=== PATIENT | female | born 1955 | race Caucasian/White ===

== ENCOUNTER → 2018-01-13 | Outpatient (CLI) | payer BC ==
--- NOTE | 2018-01-13 10:09 | WWHP ---
[facility] - HISTORY AND PHYSICAL DATE OF DICTATION: 01/13/2018 CHIEF COMPLAINT: The patient is here for her routine gynecologic exam and mammogram. HPI: This is a 62-year-old G4, P3 with an LMP of 2001. The patient is without gynecologic complaints. PAST MEDICAL HISTORY: Unremarkable. MEDICATIONS: None. ALLERGIES: No known drug allergies. PAST SURGICAL HISTORY: Jaw surgery in 1984, colonoscopy 1999. 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 SOCIAL HISTORY: She denies tobacco and drug use and has decreased alcohol intake and now only drinks around the holidays. 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 She does watch some of her grandchildren. She is expecting her 7th grandchild. FAMILY HISTORY: Mother had type 2 diabetes. Maternal aunt had breast cancer. REVIEW OF SYSTEMS: She has gained about 10 pounds over the last 1-1/2 years. She denies respiratory, cardiac or GI problems. PHYSICAL EXAM: Blood pressure 138/81, height 5 feet 8 inches, weight 175 pounds. Temperature 98.3, pulse 69. This is a well-developed, well-nourished, white female, who is alert and oriented x3, in no acute distress. HEENT is within normal limits. NECK: Supple without mass or thyromegaly. CHEST AND LUNGS: Clear to auscultation. HEART: There are intermittent irregular beats that seem to be premature contractions with slight compensatory pause. Three such beats were noted in approximately a 15 second period and then none were noted for approximately 20 seconds. Breasts are without mass or discharge. Axillary exam is negative for adenopathy. Back negative for CVA tenderness. ABDOMEN: Soft, nontender, without palpable masses. PELVIC EXAM: External genitalia, there is a right vulvar varicosity which she states she has had for many years. This is nontender and noninflamed. There are no other lesions noted. Cervix and vagina reveal a grade 2 cystocele. There is no evidence of prolapse. The cervix appears normal. The uterus is mid-position, nongravid size and nontender. There are no palpable adnexal masses or tenderness. Rectovaginal exam is negative for mass or tenderness, but does confirm a grade 2 rectocele. This is negative for occult blood extremities nontender. IMPRESSION: 1. A 62-year-old female with an asymptomatic grade 2 rectocele, and otherwise unremarkable gynecologic exam. 2. Intermittent cardiac arrhythmia, probable PVCs which is asymptomatic. PLAN: 1. Pap smear was deferred since she had normal 1 less than 2 years ago. 2. Self-breast examination was discussed. 3. Screening mammogram will be done today. 4. Osteoporosis prevention was discussed. Bone density screening will be done tomorrow and a slip was given to the patient for this. 5. We have discussed the intermittent cardiac arrhythmia. She will do a 12-lead EKG today because of this. I have also recommended that she establish with a primary care physician since she currently does not have 1. I will consider a Cardiology referral depending on the findings on the EKG. 6. She was also instructed to call if she is having any cardiac symptoms such as palpitations or lightheadedness. 7. She will return in 1 year and p.r.n. REJI / LYNN: [id number] /
--- NOTE | 2018-01-15 08:05 | MM ---
Reason for exam: screening (asymptomatic). Last mammogram was performed 1 year and 8 months ago. History: Patient is postmenopausal. Family history of breast cancer in maternal aunt. Physical Findings: A clinical breast exam by your physician is recommended on an annual basis and results should be correlated with mammographic findings. MG 3D Screening Mammo W/Cad Bilateral CC, MLO, and XCCL view(s) were taken. Prior study comparison: April 30, 2016, bilateral MG 3d screening mammo w/cad. April 05, 2014, bilateral MG screening mammo w CAD. The breast tissue is heterogeneously dense. This may lower the sensitivity of mammography. No significant changes when compared with prior studies. ASSESSMENT: Negative, BI-RAD 1 RECOMMENDATION: Routine screening mammogram of both breasts in 1 year.
== END | disposition home or self-care (01) ==
LOC: WWCWWP 07:36
PROVIDERS: ATTEND Obstetrics & Gynecology
DX: Z12.31 Encounter for screening mammogram for malignant neoplasm of breast (principal); I49.9 Cardiac arrhythmia, unspecified
CPT/HCPCS: 77063; 77067; 93005

== ENCOUNTER → 2018-01-14 | Outpatient (CLI) | payer BC ==
--- NOTE | 2018-01-14 14:36 | BD ---
EXAMINATION TYPE: MG DEXA axial skeleton. DATE OF EXAM: 01/14/2018 COMPARISON: NONE CLINICAL HISTORY: Height: 5 FT 5 1/2 IN Weight: 172 FRAX RISK QUESTIONS: Alcohol (3 or more units per day): NO Family History (Parent hip fracture): NO Glucocorticoids (More than 3mos): NO (Ex: prednisone, prednisolone, methylprednisolone, dexamethasone, and hydrocortisone). History of Fracture in Adulthood: NO Secondary Osteoporosis: 1. Type 1 Diabetes: NO 2. Hyperthyroidism: NO 3. Menopause before 45: NO 4. Malnutrition: NO 5. Chronic liver disease: NO Rheumatoid Arthritis: NO Current Tobacco Use: NO RISK FACTORS HISTORY OF: Active: YES Postmenopausal woman: AGE 46 MEDICATIONS: Additional Medications: NONE Additional History: EXAM MEASUREMENTS: Bone mineral densitometry was performed using the [employer] System. Bone mineral density as measured about the Lumbar spine is: ----- L1-L4(G/cm2): 1.216 T Score Values are as follows: ----- L2: -0.8 ----- L3: 0.6 ----- L4: 1.2 ----- L1-L4: 0.3 Bone mineral density has: DECREASED -4.1 % since study of: 2010 Bone mineral density about the R hip (g/cm2): 1.019 Bone mineral density about the L hip (g/cm2): 0.891 T Score values are as follows: -----R Neck: -0.1 -----L Neck: -1.1 -----R Total: 0.3 -----L Total: -0.3 Bone mineral density has: DECREASED -2.9 % since study of: 2010 IMPRESSION: Osteopenia (T Score between -2.5 and -1). There is slightly increased risk of fracture and the patient may be considered for treatment. Re-Screen 2-5 years. NOTE: T-SCORE=SD OF THE YOUNG ADULT MEAN.
== END | disposition home or self-care (01) ==
LOC: RADBDWWP 07:12
PROVIDERS: ATTEND Obstetrics & Gynecology
DX: M85.80 Other specified disorders of bone density and structure, unspecified site (principal); Z78.0 Asymptomatic menopausal state
CPT/HCPCS: 77080

== ENCOUNTER → 2018-02-03 | Outpatient (CLI) | payer BC ==
--- NOTE | 2018-02-03 11:11 | ECHOF ---
Referral Reason:I34.0 Mitral Regurgitation, I49.3 PVC MEASUREMENTS -------- HEIGHT: 167.6 cm WEIGHT: 78.0 kg BP: 171/106 RVIDd: 3.1 cm (< 3.3) IVSd: 1.1 cm (0.6 - 1.1) LVIDd: 5.1 cm (3.9 - 5.3) LVPWd: 1.2 cm (0.6 - 1.1) IVSs: 1.4 cm LVIDs: 3.5 cm LVPWs: 1.6 cm LAESV Index (A-L): 43.85 ml/m Ao Diam: 2.8 cm (2.0 - 3.7) AV Cusp: 1.9 cm (1.5 - 2.6) LA Diam: 4.4 cm (2.7 - 3.8) EPSS: 0.4 cm MV E Cornelio: 0.70 m/s MV DecT: 314 ms MV A Cornelio: 0.51 m/s MV E/A Ratio: 1.39 RAP: 5.00 mmHg RVSP: 32.85 mmHg MV EF SLOPE: 103.97 mm/s (70 - 150) MV EXCURSION: 2.08 cm (> 18.000) FINDINGS -------- Sinus rhythm with extra systolic beats. This was a technically good study. The left ventricular size is normal. There is mild concentric left ventricular hypertrophy. Overa ll left ventricular systolic function is normal with, an EF between 55 - 60 %. The right ventricle is normal in size and function. LA is severely dilated >40 ml/m2 RA appears enlarged. Aortic valve is trileaflet and is mildly thickened. Trace to mild aortic regurgitation. There is no evidence of aortic stenosis. The mitral valve leaflets are mildly thickened. Moderate mitral regurgitation is present. Mild pr olapse of the anterior mitral valve leaflet. Mild prolapse of the posterior mitral valve leaflet. Bhtx-xi-sxhtread tricuspid regurgitation present. There is borderline pulmonary hypertension. The right ventricular systolic pressure, as measured by Doppler, is 32.85mmHg. Possible tricuspid valv e prolapse. Moderate pulmonic regurgitation. The aortic root size is normal. Normal inferior vena cava with normal inspiratory collapse consistent with estimated right atrial pre ssure of 5 mmHg. There is no pericardial effusion. CONCLUSIONS -------- 1. Sinus rhythm with extra systolic beats. 2. This was a technically good study. 3. The left ventricular size is normal. 4. There is mild concentric left ventricular hypertrophy. 5. Overall left ventricular systolic function is normal with, an EF between 55 - 60 %. 6. LA is severely dilated >40 ml/m2 7. RA appears enlarged. 8. Aortic valve is trileaflet and is mildly thickened. 9. Trace to mild aortic regurgitation. 10. The mitral valve leaflets are mildly thickened. 11. Moderate mitral regurgitation is present. 12. Mild prolapse of the anterior mitral valve leaflet. 13. Mild prolapse of the posterior mitral valve leaflet. 14. Vrwh-gy-cxpuisto tricuspid regurgitation present. 15. There is borderline pulmonary hypertension. 16. The right ventricular systolic pressure, as measured by Doppler, is 32.85mmHg. 17. Possible tricuspid valve prolapse. 18. Moderate pulmonic regurgitation. 19. The aortic root size is normal. 20. There is no pericardial effusion. MATERIALS CLERK: Jayden Adams RDCS
== END | disposition home or self-care (01) ==
LOC: RADECHMAIN 08:24
PROVIDERS: ATTEND Internal Medicine
DX: I08.3 Combined rheumatic disorders of mitral, aortic and tricuspid valves (principal)
CPT/HCPCS: 93306

== ENCOUNTER → 2019-02-18 | Outpatient (CLI) | payer OTHER ==
--- NOTE | 2019-02-19 11:45 | MM ---
Reason for exam: screening (asymptomatic). Last mammogram was performed 1 year and 1 month ago. History: Patient is postmenopausal. Family history of breast cancer in maternal aunt. Physical Findings: A clinical breast exam by your physician is recommended on an annual basis and results should be correlated with mammographic findings. MG 3D Screening Mammo W/Cad Bilateral CC and MLO view(s) were taken. Prior study comparison: January 13, 2018, bilateral MG 3d screening mammo w/cad. April 30, 2016, bilateral MG 3d screening mammo w/cad. The breast tissue is heterogeneously dense. This may lower the sensitivity of mammography. No suspicious abnormality. No significant changes when compared with prior studies. ASSESSMENT: Benign, BI-RAD 2 RECOMMENDATION: Routine screening mammogram of both breasts in 1 year.
== END ==
LOC: RADMAMWWP 08:56
PROVIDERS: ATTEND Internal Medicine
DX: Z12.31 Encounter for screening mammogram for malignant neoplasm of breast (principal)
CPT/HCPCS: 77063; 77067

== ENCOUNTER → 2020-05-04 | Outpatient (CLI) | payer MEDICARE, OTHER ==
--- NOTE | 2020-05-05 01:58 | CONS ---
CONSULTATION DATE OF SERVICE: 05/04/2020 This patient is a 64-year-old lady who has been evaluated in the sleep center for possible obstructive sleep apnea-hypopnea syndrome. HISTORY OF PRESENT ILLNESS AND SLEEP-WAKE EVALUATION: Patient usual sleep schedule from midnight until 6 a.m. No problems with falling asleep. No TV in bedroom. She usually sleeps on the side position. She has loud snoring and episodes of stopped breathing during sleep. She wakes up from sleep with choking, dry mouth and sweating 3 times with one episode of nocturia. During the day, she usually does not have to take any naps. Aurora Sleepiness Scale is 4. No history of hypnagogic hallucinations, sleep paralysis or cataplexy. PAST MEDICAL HISTORY: Mostly negative. PAST SURGICAL HISTORY: Low jaw surgery. MEDICATIONS: Tumeric, vitamin D3. SOCIAL HISTORY: Negative for smoking. Alcohol consumption occasional. FAMILY HISTORY: Diabetes, heart problems and cancer. PHYSICAL EXAMINATION: GENERAL: lady without distress. VITAL SIGNS: BP 146/77, HR 76, RR 16, height 5 feet 6 inches, weight 166, body mass index 26.7, temperature 97.8, oxygen saturation at room air 94%. HEENT: PERRLA, EOMI. Oropharynx extremely low position of soft palate. Mallampati 4. Neck 14-1/2 inches in circumference. NECK: Supple, no JVD. Thyroid is not palpable. LUNGS: Clear to percussion and to auscultation. Good air exchange. No wheezing or rhonchi. HEART: S1, S2 regular. No murmurs, gallops, or rubs. ABDOMEN: Soft and nontender. Bowel sounds are present. No organomegaly appreciated. EXTREMITIES: No clubbing or cyanosis. 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 Cranial nerves 2 to 7 intact. There is no fasciculation or atrophy. noted. No focal deficits observed. IMPRESSION: 1. Snoring, episodes of stopped breathing during the sleep, small oropharyngeal air space, obstructive sleep apnea-hypopnea syndrome. 2. Status post lower jaw surgery. 3. Snoring. PLAN: 1. Polysomnography for evaluation of patient's breathing during sleep. 2. CPAP/BiPAP titration if sleep study confirms obstructive sleep apnea-hypopnea syndrome. 3. Preferable position during sleep on the side. 4. No driving if patient feels any sleepiness. 5. I will see patient for follow up visit to explain results of testing and following plan. Thank you very much for referring this patient for consultation. Sincerely, Elton Mackenzie MD, PhD, FAASM Diplomat of [employer] T[employer] Rep[employer]r of [facility] [place] MMJOSE LUIS / LYNN: [id number] /
== END | disposition home or self-care (01) ==
LOC: SLEEP 14:30
PROVIDERS: ATTEND Internal Medicine
DX: G47.33 Obstructive sleep apnea (adult) (pediatric) (principal); Z98.890 Other specified postprocedural states
CPT/HCPCS: 99211

== ENCOUNTER 2020-05-10 07:38 | Day surgery (SDC) | payer MEDICARE, OTHER ==
[2020-05-09 08:42] VITALS: BMI 27.4
[~2020-05-10 07:38] MED LIST: LACTATED RINGERS 1,000 ML IV SCH
[2020-05-10 07:59] VITALS: PULSE 77; TEMP 98.4
[2020-05-10] MEDS ORDERED: LIDOCAINE 1% (10MG/ML) FOR IV START INTRADERMA ONE (08:09)
[2020-05-10] MEDS ORDERED: PROPOFOL 10 MG/ML 20 ML VIAL IV ONE (08:43)
--- NOTE | 2020-05-10 09:00 | P.PCN ---
Date of Procedure: 05/10/20 Procedure(s) Performed: BRIEF HISTORY: Patient is a 64-year-old pleasant female scheduled for an elective colonoscopy as a part of screening for colorectal neoplasia. PROCEDURE PERFORMED: Colonoscopy. PREOPERATIVE DIAGNOSIS: Screening for colon cancer. IV sedation per Anesthesia. PROCEDURE: After informed consent was obtained, the patient, was brought into the endoscopy unit. IV sedation was administered by Anesthesia under continuous monitoring. Digital rectal examination was normal. Initially the Olympus CF-160 flexible video colonoscope was then inserted in the rectum, gradually advanced into the cecum without any difficulty. Careful examination was performed as the scope was gradually being withdrawn. Ileocecal valve and the appendiceal orifice were visualized and appeared normal. Prep was excellent. Mucosa of the cecum, ascending colon, transverse colon, descending colon, sigmoid colon, and rectum appeared normal. Scattered sigmoid diverticulosis seen. Retroflexion was performed in the rectum and no lesions were seen. The patient tolerated the procedure well. IMPRESSION: Normal-appearing colon from rectum to cecum no evidence of colorectal neoplasia. Scattered sigmoid diverticulosis. RECOMMENDATIONS: Findings of this examination were discussed with the patient as well as a family. She was advised to have a repeat screening colonoscopy in 10 years.
[2020-05-10 09:21] VITALS: BP 130/72; RESP 18
== END 2020-05-10 09:49 | disposition home or self-care (01) ==
LOC: ORWHC2ENDO 07:38
PROVIDERS: ATTEND Internal Medicine Gastroenterology
DX: Z12.11 Encounter for screening for malignant neoplasm of colon (principal); K57.30 Diverticulosis of large intestine without perforation or abscess without bleeding; Z98.890 Other specified postprocedural states
CPT/HCPCS: G0121; J2704; 45378

== ENCOUNTER → 2020-06-13 | Outpatient (CLI) | payer MEDICARE, OTHER ==
--- NOTE | 2020-06-13 08:51 | BD ---
EXAMINATION TYPE: Axial Bone Density DATE OF EXAM: 06/13/2020 COMPARISON: 01/14/2018 CLINICAL HISTORY: Height: 65.2 IN Weight: 160 LBS RISK FACTORS HISTORY OF: Active: YES Postmenopausal woman: AGE 42 MEDICATIONS: Additional Medications: VIT D, TUMERIC EXAM MEASUREMENTS: Bone mineral densitometry was performed using the [employer] System. Bone mineral density as measured about the Lumbar spine is: ----- L1-L4(G/cm2): 1.229 T Score Values are as follows: ----- L2: -0.7 ----- L3: 1.5 ----- L4: 0.9 ----- L1-L4: 0.4 Bone mineral density has: Increased 1.8% since study of: 01/14/2018 Bone mineral density about the R hip (g/cm2): 0.935 Bone mineral density about the L hip (g/cm2): 0.920 T Score values are as follows: -----R Neck: -0.7 -----L Neck: -0.8 -----R Total: 0.0 -----L Total: -0.5 Bone mineral density has: Decreased -3.2% since study of: 01/14/2018 IMPRESSION: No evidence for osteoporosis or osteopenia NOTE: T-SCORE=SD OF THE YOUNG ADULT MEAN.
--- NOTE | 2020-06-19 10:28 | MM ---
Reason for exam: screening (asymptomatic). Last mammogram was performed 1 year and 4 months ago. History: Patient is postmenopausal. Family history of breast cancer in maternal aunt. Physical Findings: A clinical breast exam by your physician is recommended on an annual basis and results should be correlated with mammographic findings. MG 3D Screening Mammo W/Cad Bilateral CC and MLO view(s) were taken. Prior study comparison: February 18, 2019, bilateral MG 3d screening mammo w/cad. January 13, 2018, bilateral MG 3d screening mammo w/cad. There are scattered fibroglandular densities. No significant changes when compared with prior studies. ASSESSMENT: Benign, BI-RAD 2 RECOMMENDATION: Routine screening mammogram of both breasts in 1 year.
== END | disposition home or self-care (01) ==
LOC: RADMAMWWP 07:14
PROVIDERS: ATTEND Internal Medicine
DX: Z12.31 Encounter for screening mammogram for malignant neoplasm of breast (principal); Z80.3 Family history of malignant neoplasm of breast; M81.0 Age-related osteoporosis without current pathological fracture
CPT/HCPCS: 77063; 77067; 77080

== ENCOUNTER → 2022-05-08 | Outpatient (CLI) | payer MEDICARE, OTHER ==
[2022-05-08 22:32] LABS: Basophils # (A) 0.02 X 10*3/uL (0.00-0.10); Basophils % (A) 0.3 %; Eosinophils # (A) 0.13 X 10*3/uL (0.04-0.35); Eosinophils % (A) 2.2 %; HCT 46.2 % (37.2-46.3); HGB 14.5 g/dL (12.0-15.0); Immature Grans, Automated 0.3 %; Lymphocytes # (A) 1.37 X 10*3/uL (0.90-5.00); Lymphocytes % (A) 23.7 %; MCH 30.9 pg (27.0-32.0); MCHC 31.4 g/dL (32.0-37.0); MCV 98.5 fL (80.0-97.0); Mean Platelet Volume 10.5 fL (9.5-12.2); Monocytes # (A) 0.58 X 10*3/uL (0.20-1.00); NRBC Per 100 WBC 0 /100 WBCS (0.0-0.0); Neutrophils # (A) 3.67 X 10*3/uL (1.80-7.70); Neutrophils % (A) 63.5 %; Platelet Count 206 X 10*3/uL (140-440); RBC 4.69 X 10*6/uL (4.10-5.20); RDW 12.2 % (11.5-14.5); WBC 5.79 X 10*3/uL (4.50-10.00)
[2022-05-08 23:15] LABS: African American GFR (CKD) 81.6 (60.0-200.0); BUN/Creat Ratio 21.64 Ratio (12.00-20.00); Blood Urea Nitrogen 18.5 mg/dL (9.0-27.0); Calcium 9.5 mg/dL (8.7-10.3); Carbon Dioxide 25.1 mmol/L (20.0-27.5); Non-African American GFR(CKD) 70.4 (60.0-200.0); Potassium 4.3 mmol/L (3.5-5.5)
== END | disposition home or self-care (01) ==
LOC: LABWHC1 16:27
PROVIDERS: ATTEND Internal Medicine Interventional Cardiology
DX: I10 Essential (primary) hypertension (principal); I34.0 Nonrheumatic mitral (valve) insufficiency
CPT/HCPCS: 36415; 80048; 85025

== ENCOUNTER → 2022-05-10 | Outpatient (CLI) | payer MEDICARE, OTHER | END | disposition home or self-care (01) | LOC: RADMAMWWP 08:42 | PROVIDERS: ATTEND Internal Medicine | DX: Z12.31 Encounter for screening mammogram for malignant neoplasm of breast (principal) | CPT/HCPCS: 77063; 77067 ==

== ENCOUNTER 2022-05-23 06:23 | Day surgery (SDC) | payer MEDICARE, OTHER ==
[~2022-05-23 06:23] MED LIST changes: +ALPRAZolam 0.25 MG TAB PO PRN; +ALPRAZolam 0.5 MG TAB PO PRN; +ASPIRIN 325 MG TAB PO STA; +ATORVASTATIN 80 MG TAB PO STA; +HEPARIN SODIUM,PORCINE 10,000 UNIT in SODIUM CHLORIDE 0.9% 1,000 ML IRRIGATION PRN; +HEPARIN SODIUM,PORCINE 2,500 UNIT in SODIUM CHLORIDE 0.9% 250 ML IRRIGATION PRN; -LACTATED RINGERS 1,000 ML IV SCH; +NITROGLYCERIN SL TABS 0.4 MG TAB SUBLINGUAL PRN; +SODIUM CHLORIDE 0.9% 1,000 ML in EMPTY BAG 1 BAG IV SCH
[2022-05-23 06:58] VITALS: TEMP 98.1
[2022-05-23] MEDS ORDERED: VERAPAMIL 2.5 MG/ML 2 ML AMP ONE (07:25)
[2022-05-23] MEDS ORDERED: HEPARIN SODIUM 1,000 UN/ML (10ML VL) ONE (07:40)
[2022-05-23] MEDS ORDERED: MIDAZOLAM 2 MG/2 ML VIAL IV ONE ×3 (08:09→12:06)
[2022-05-23] MEDS ORDERED: LIDOCAINE 1% INJ 10MG/ML (30 ML VIAL-PF) SQ ONE (08:12)
[2022-05-23] MEDS ORDERED: VERAPAMIL SYRINGE (5 MG/10 ML) INTRAARTER ONE (08:13)
[2022-05-23] MEDS ORDERED: HEPARIN SODIUM 1,000 UN/ML (10ML VL) IV ONE (08:32)
[2022-05-23] MEDS ORDERED: IOPAMIDOL-370 100ML BTL INJ ONE (08:51)
[2022-05-23 08:53] LABS: O2 Sat Blood Gas 94.2 %
[2022-05-23 08:54] LABS: O2 Sat Blood Gas 78.9 %
[2022-05-23] MEDS ORDERED: SODIUM CHLORIDE 0.9% 1,000 ML IV SCH (09:15)
[2022-05-23] MEDS ORDERED: SODIUM CHLORIDE 0.9% 1,000 ML IV ONE (10:00)
[2022-05-23] MEDS ORDERED: fentaNYL (PF) 50 MCG/ML 2 ML AMP ONE (11:34)
[2022-05-23] MEDS ORDERED: IV FLUID CONTINUATION 600 ML IV ONE (11:40)
[2022-05-23] MEDS ORDERED: BENZOCAINE SPRAY 1 CAN TOPICAL ONE (11:58)
[2022-05-23] MEDS ORDERED: fentaNYL (PF) 50 MCG/ML 2 ML AMP IV ONE (12:00)
[2022-05-23 12:24] VITALS: RESP 15
[2022-05-23 12:25] VITALS: PULSE 74
[2022-05-23 14:57] VITALS: BP 138/77
--- NOTE | 2022-05-23 18:33 | CC ---
CARDIAC CATHETERIZATION REPORT DATE OF PROCEDURE: 05/23/2022. PROCEDURE: Right and left heart catheterization and coronary angiography. PERFORMED BY: Dr. Jeffery Benz. Moderate conscious sedation time was 43 minutes. Patient was administered Versed. Oxygen saturation, hemodynamics and EKG were monitored closely. CLINICAL INFORMATION: Mrs. Garrido is a 66-year-old lady with a diagnosis of mitral valve prolapse. Over the last few weeks she has become more short of breath and objectively on the echo the mitral regurgitation was severe, with moderate pulmonary hypertension. She has symptoms of exertional shortness of breath. LV systolic function was fairly well preserved. She was advised a transesophageal echo and coronary angiography, right and left heart catheterization, and she was brought in for the procedure electively. PROCEDURE NOTE: Under local anesthesia and strict aseptic precautions, a 6-Turkish introducer was placed in the right radial artery. The patient had a right brachial venous access. Using the micropuncture wire I advanced under fluoroscopic guidance and placed a 6-Turkish sheath in the right brachial vein. The right radial artery also had a 6-Turkish sheath. I performed right heart catheterization with a balloon-tipped catheter. Hemodynamics and saturations were obtained. I then did a thermodilution cardiac output assessment. I then performed coronary angiography using JL3.5 and JR4 catheters. I checked the LV pressures with the right Tri catheter. The sheaths were then taken out and hemostasis secured. Saturation in the fingers of the right hand was 94%. Patient tolerated procedure well without complications. CARDIAC CATHETERIZATION FINDINGS: The right atrial pressure was 2 mmHg. Patient was a bit dehydrated. Right ventricular pressure was 25/2. Pulmonary arterial pressure was 25/8 with a mean of 16. Wedge pressure was about 6 mmHg. V-wave was 16 mmHg. The pulmonary arterial saturation was 78% and femoral artery saturation was 96%. The right atrial saturation was also 78%. There was no shunt. The Erlin cardiac output was 7.2 L and thermodilution cardiac output was 6.0 L. CORONARY ANGIOGRAPHY FINDINGS: RIGHT CORONARY ARTERY: A very large superdominant vessel. Minor irregularities. No significant disease. It distally bifurcates into a large PDA and a much larger PLV. No significant disease in the superdominant RCA. LEFT MAIN CORONARY ARTERY: Short, patent, disease-free vessel that bifurcates into LAD and circumflex. LEFT ANTERIOR DESCENDING CORONARY ARTERY: Good-caliber vessel gives off two diagonal and several septal branches. There is some ectasia in the LAD at the junction of the proximal and middle one third, but no significant obstruction. LAD is of good caliber runs all the way to the apex, supplying a sizable amount of myocardium. No significant disease in the LAD system other than some ectasia in the mid portion. The two diagonal branches are free of significant disease. LEFT POSTERIOR CIRCUMFLEX CORONARY ARTERY: Nondominant vessel, small in distribution, fair caliber. Minor irregularities. No significant disease. LEFT VENTRICULOGRAM: Left ventriculogram was not performed. FINAL IMPRESSION: This patient does not have any significant pulmonary hypertension. There is no oxygen step-up. Thermodilution cardiac output was 6 L and Erlin cardiac output was 7.2 L. The left ventricular end-diastolic pressure was 10 mmHg without any gradient across the aortic valve. She has a right-dominant system, no significant obstructive CAD and no gradient across aortic valve. RECOMMENDATIONS: We will await the findings of transesophageal echo and then decide regarding management of mitral valve regurgitation, which appears to be severe with prolapse. MMODL / IJN: [id number] /
--- NOTE | 2022-05-24 09:26 | ECHOT ---
TRANSESOPHAGEAL ECHOCARDIOGRAM INDICATION: Mitral regurgitation. PROCEDURE NOTE: After obtaining informed consent, transesophageal echocardiogram was performed in left lateral position using an Omniplane probe. Local and IV sedation were obtained using 2 mg of Versed and 25 mcg of fentanyl. The patient tolerated the procedure well without any obvious immediate complications. Total sedation time was 15 minutes. FINDINGS: 1. Mitral valve appears thickened, and both the mitral valve leaflets show prolapse. There is moderate central mitral regurgitation noted. There is no evidence of flail mitral leaflet. 2. Left atrium appears mildly enlarged. 3. Right atrium and right ventricle are seen within normal limits. 4. Left ventricle has normal size and systolic function. 5. Ascending aorta measures within normal limits. 6. Aortic valve is a 3-leaflet valve. There is no evidence of aortic stenosis or regurgitation. There is mild tricuspid regurgitation. 7. There is no evidence of onja-xi-yvtbl shunt by color-flow Doppler or tbiar-ho-orsj shunt by agitated saline contrast study. CONCLUSIONS: Moderate central mitral regurgitation. There is no evidence of reversal of flow in the pulmonary veins. Left ventricular systolic function appears preserved. MMODL / IJN: [id number] /
== END 2022-05-23 15:28 | disposition home or self-care (01) ==
LOC: CATHCVL 06:23
PROVIDERS: ATTEND Internal Medicine Interventional Cardiology
DX: I08.1 Rheumatic disorders of both mitral and tricuspid valves (principal); Z20.822 Contact with and (suspected) exposure to COVID-19; I34.1 Nonrheumatic mitral (valve) prolapse
CPT/HCPCS: 93312; 93320; 93325; 93460; 85018; 82810; 87635; C1769 ×3; C1894 ×2; C1751; J2250; J2001; J3010; J1644; Q9967

== ENCOUNTER → 2023-06-23 | Outpatient (CLI) | payer MEDICARE ==
--- NOTE | 2023-06-23 11:30 | MM ---
Reason for Exam: Screening (asymptomatic). Last mammogram was performed 1 year(s) and 1 month(s) ago. Patient History: Menarche at age 10. First Full-Term at age 23. Postmenopausal. Patient has history of breast feeding. Maternal aunt had breast cancer. Risk Values: Suyapa 5 year model risk: 1.7%. NCI Lifetime model risk: 5.5%. Prior Study Comparison: 02/18/2019 Bilateral Screening Mammogram, [facility]. 06/13/2020 Bilateral Screening Mammogram, [facility]. 05/10/2022 Bilateral MG 3D screening mammo w/cad, [facility]. Tissue Density: The breast tissue is heterogeneously dense. This may lower the sensitivity of mammography. Findings: Analyzed By CAD. Bilateral benign calcifications. There is no suspicious group of microcalcifications or new suspicious mass in either breast. Overall Assessment: Benign, BI-RAD 2 Management: Screening Mammogram of both breasts in [address] [facility] will attempt to contact patient to return for supplemental views and ultrasound if indicated. Patient should continue monthly self-breast exams. A clinical breast exam by your physician is recommended on an annual basis. This exam should not preclude additional follow-up of suspicious palpable abnormalities. Note on Suyapa scores and lifetime risk: 1. A Suyapa score greater than 3% is considered moderate risk. If this is the case, consider specialist referral to assess eligibility for a risk reducing agent. 2. If overall lifetime risk for the development of breast cancer is 20% or higher, the patient may qualify for future screening with alternating mammogram and breast MRI. Electronically signed and approved by: Momo Dewitt DO
--- NOTE | 2023-06-23 12:09 | BD ---
EXAMINATION TYPE: Axial Bone Density DATE OF EXAM: 06/23/2023 CLINICAL HISTORY: 67 years old Female. ICD-10 CODE: Z78.0 ASYMPTOMATIC MENOPAUSAL Height: Weight: FRAX RISK QUESTIONS: Secondary Osteoporosis: yes 3. Menopause before 45: yes, 42 RISK FACTORS HISTORY OF: Postmenopausal woman: yes, at 42 yrs old Hyperparathyroidism: no Adrenal Insufficiency: no MEDICATIONS: Additional Medications: vit d, tumeric, bp meds, calcium Additional History: hypertension, EXAM MEASUREMENTS: Bone mineral densitometry was performed using the [employer] System. Bone mineral density as measured about the Lumbar spine is: ----- L1-L4(G/cm2): 1.068 T Score Values are as follows: ----- L1: -1.2 ----- L2: -1.7 ----- L3: -1.1 ----- L4: 0.2 ----- L1-L4: -0.9 Z Score Values are as follows: ----- L1: 0.2 ----- L2: -0.3 ----- L3: 0.2 ----- L4: 1.6 ----- L1-L4: 0.4 Bone mineral density has: Decreased -13.1% since study of: 06.13.2020 Bone mineral density about the R hip (g/cm2): 1.014 Bone mineral density about the L hip (g/cm2): 0.969 T Score values are as follows: -----R Neck: 0.1 -----L Neck: -0.8 -----R Total: 0.0 -----L Total: -0.3 Z Score values are as follows: -----R Neck: 1.5 -----L Neck: 0.7 -----R Total: 1.2 -----L Total: 0.9 Bone mineral density has: Increased 1.4% since study of: 06.13.2020 FRAX%s: The graph provided illustrates a 8.2% chance for a major osteoporotic fx and a 0.6% chance fo r the hips probability for fx in 10 years time. IMPRESSION: Normal (Values between +1 and -1 indicate normal bone mass). Consider repeating this study in 5 year s or sooner if there is some new clinical indication. NOTE: T-SCORE=SD OF THE YOUNG ADULT MEAN.
== END | disposition home or self-care (01) ==
LOC: RADMAMWWP 10:38
PROVIDERS: ATTEND Internal Medicine
DX: Z12.31 Encounter for screening mammogram for malignant neoplasm of breast (principal); M85.88 Other specified disorders of bone density and structure, other site; Z78.0 Asymptomatic menopausal state; Z80.3 Family history of malignant neoplasm of breast
CPT/HCPCS: 77063; 77067; 77080

== ENCOUNTER 2023-09-16 06:08 | Day surgery (SDC) | payer MEDICARE ==
[2023-09-11 17:50] VITALS: BMI 26.6
[~2023-09-16 06:08] MED LIST changes: +HEPARIN SODIUM,PORCINE (1 ML) 2,500 UNIT in SODIUM CHLORIDE 0.9% 250 ML IRRIGATION PRN; -HEPARIN SODIUM,PORCINE 2,500 UNIT in SODIUM CHLORIDE 0.9% 250 ML IRRIGATION PRN
[2023-09-16] MEDS ORDERED: SODIUM CHLORIDE 0.9% 1,000 ML IV ONE (06:48)
[2023-09-16] MEDS ORDERED: LIDOCAINE 1% INJ 10MG/ML (20 ML MDV) ONE (07:16)
[2023-09-16] MEDS ORDERED: fentaNYL (PF) 50 MCG/ML 2 ML AMP ONE (07:16)
[2023-09-16] MEDS ORDERED: VERAPAMIL 2.5 MG/ML 2 ML AMP ONE (07:16)
[2023-09-16 07:22] VITALS: TEMP 98.4
[2023-09-16] MEDS: BENZOCAINE SPRAY 1 CAN MUCOUS MEM ONE ×2 (07:25→08:34)
[2023-09-16] MEDS ORDERED: IV FLUID CONTINUATION 1,000 ML IV ONE (07:40)
[2023-09-16] MEDS ORDERED: HEPARIN SODIUM 1,000 UN/ML (10ML VL) ONE (07:44)
[2023-09-16] MEDS: MIDAZOLAM 2 MG/2 ML VIAL IVP ONE ×3 (07:52→08:35)
[2023-09-16] MEDS ORDERED: LIDOCAINE 1% INJ 10MG/ML (20 ML MDV) SQ ONE (07:56)
[2023-09-16] MEDS ORDERED: VERAPAMIL SYRINGE (5 MG/10 ML) INTRAARTER ONE (08:00)
[2023-09-16] MEDS ORDERED: HEPARIN SODIUM 1,000 UN/ML (10ML VL) IV ONE (08:02)
[2023-09-16] MEDS ORDERED: IOPAMIDOL-370 100ML BTL INJ ONE (08:10)
[2023-09-16] MEDS ORDERED: fentaNYL (PF) 50 MCG/1 ML VIAL IVP ONE (08:34)
[2023-09-16] MEDS ORDERED: SODIUM CHLORIDE 0.9% 1,000 ML IV SCH (08:45)
--- NOTE | 2023-09-16 08:52 | CC ---
CARDIAC CATHETERIZATION REPORT PROCEDURES PERFORMED: Left heart catheterization and coronary angiography. PERFORMED BY: Dr. Jeffery Benz. ANESTHESIA: Moderate conscious sedation time was 16 minutes. The patient was administered Versed. Oxygen saturation, hemodynamics, and EKG were monitored closely. CLINICAL INFORMATION: Ms. Kimberly Garrido is a 67-year-old lady with a history of mitral valve prolapse syndrome, who has more significant mitral regurgitation with moderate pulmonary hypertension and increased shortness of breath. Therefore, she was advised a transesophageal echo and coronary angiography, brought in for the procedure. A year ago, right heart catheterization did not reveal any significant pulmonary hypertension. PROCEDURE NOTE: Under local anesthesia and strict aseptic precautions, a 6-Georgian introducer was placed in the right radial artery. Using JL3.4 and JR4 catheters, I performed coronary angiography, and the same right catheter was used to check LV pressures. Following the procedure, a TR band was applied and saturation of fingers in the right hand was 98%. The patient tolerated the procedure well without complication. She will have a transesophageal echo, and then, we will make specific recommendations. CARDIAC CATHETERIZATION FINDINGS: The left ventricular end-diastolic pressure was 13 mmHg without any gradient across the aortic valve. CORONARY ANGIOGRAPHY FINDINGS: 1. Right coronary artery: Dominant vessel. No significant disease. It is actually a superdominant vessel, large PLV with fairly large PDA. No significant disease with minor irregularities. This is a superdominant disease-free RCA. 2. Left main coronary artery: Short patent vessel, free of significant disease, bifurcates into LAD and circumflex. 3. Left anterior descending coronary artery: Good caliber vessel, gives off two diagonal branches, runs towards the apex, has minor irregularities, several septal branches. This is a large distribution LAD that curves over the apex to supply the inferoapical portion of left ventricle. No significant disease. 4. Left posterior circumflex coronary artery: Nondominant vessel, small caliber, gives off a left atrial circumflex branch. Minor irregularities. No significant disease. 5. Left ventriculogram was not performed. FINAL IMPRESSION: This patient has normal filling pressures, no gradient, a right-dominant system, no significant obstructive CAD. Filling pressures are normal. Right heart catheterization was not performed. She will have a transesophageal echo, and we will then make specific recommendations. RECOMMENDATIONS: From a coronary standpoint, no intervention. We will await the GINA findings and then make specific recommendations. Details were discussed with the patient. She understands all details and wishes to proceed with a transesophageal echo that will be performed shortly. MMJOSE LUIS / EMMAN: [id number] /
--- NOTE | 2023-09-16 08:57 | P.PCN ---
Date of Procedure: 09/16/23 Description of Procedure: Indication: Mitral regurgitation Procedure Description: After explaining the procedure to the patient, it's risk and complications, blood pressure, heart rate and O2 saturation were monitored. The throat was sprayed with Cetacaine. Patient received 1 mg intravenous Versed, 50 mcg intravenous fentanyl. The probe was introduced into the esophagus without difficulty. Images were obtained. Following that, the probe was removed. There was no immediate complication. Findings: Left atrial appendage is normal, left ventricular systolic function and size are normal. The aortic valve and tricuspid valve are normal. The mitral valve is myxomatous severe prolapse of both leaflets. No pericardial effusion was noted. Descending thoracic aorta appears to be normal. Contrast bubble study across the intra-atrial septum with Valsalva maneuver. Doppler: Pulse wave and color Doppler were obtained, and revealed moderate tricuspid regurgitation with mild aortic regurgitation. There was severe multi-jets central mitral regurgitation. There was no shunting by color Doppler study. Conclusion: 1. Normal appearance of the left atrial appendage 2. Normal limits ventricle size and systolic function 3. 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 And moderate tricuspid regurgitation and mild aortic regurgitation 5. No shunting across the intra-atrial septum
[2023-09-16 12:45] VITALS: RESP 20
[2023-09-16 14:49] VITALS: BP 138/72; PULSE 65
== END 2023-09-16 14:15 | disposition home or self-care (01) ==
LOC: CATHCVL 06:08
PROVIDERS: ATTEND Internal Medicine Interventional Cardiology
DX: I08.3 Combined rheumatic disorders of mitral, aortic and tricuspid valves (principal); I10 Essential (primary) hypertension; Z79.899 Other long term (current) drug therapy
CPT/HCPCS: 93312; 93320; 93325; 93458; C1769; C1894; J2250; J2001; J1644; Q9967; J3010

== ENCOUNTER → 2024-08-18 | Outpatient (CLI) | payer MEDICARE ==
--- NOTE | 2024-08-18 15:17 | US ---
EXAMINATION TYPE: US thyroid st tissue head/neck DATE OF EXAM: 08/18/2024 COMPARISON: NONE CLINICAL INDICATION: Female, 68 years old with history of R59.0 LOCALIZED ENLARGED LYMPH NODES; Enlar ged lymph nodes per order. Patient does not feel a specific palpable area of concern within the left neck. TECHNIQUE: Grayscale and color Doppler imaging of the thyroid gland. FINDINGS: GLAND SIZE: Right Lobe: 5.0 x 1.7 x 1.1 cm Overall Parenchyma: homogeneous Left Lobe: 4.8 x 1.5 x 1.3 cm Overall Parenchyma: homogeneous Isthmus Thickness: 0.3 cm NODULES RIGHT: # of nodules measured on right: 1 less than 5 mm nodule seen. LEFT: # of nodules measured on left: 1, additional less than 5 mm nodule seen. 1. 0.7 X 0.7 x 0.3 cm, lower medial, mixed cystic and solid, hypoechoic nodule, which is wider than tall, with smooth margins, with echogenic foci. Prior size: No prior ISTHMUS: # of nodules measured in the isthmus: 0 Bilateral neck scanned. Hypoechoic area with hyperechoic center seen left submandibular area: 1.6 x 1.3 x 0.5 cm. Cortex= 3 c m. IMPRESSION: 1. Subcentimeter thyroid nodules too small to characterize. Recommend continued surveillance. 2. Borderline thyromegaly. 3. Nonspecific left submandibular lymph node. [facility], , 08/18/2024 3:15 PM
== END | disposition home or self-care (01) ==
LOC: RADUSWWP 14:28
PROVIDERS: ATTEND Internal Medicine Hematology & Oncology
DX: R59.0 Localized enlarged lymph nodes
CPT/HCPCS: 76536

== ENCOUNTER → 2024-08-31 | Outpatient (CLI) | payer MEDICARE ==
--- NOTE | 2024-08-31 10:04 | MM ---
Reason for Exam: Screening (asymptomatic). Last mammogram was performed 1 year(s) and 2 month(s) ago. Patient History: Menarche at age 10. First Full-Term at age 23. Postmenopausal. Patient has history of breast feeding. Maternal aunt had breast cancer, age 50. Risk Values: Suyapa 5 year model risk: 1.7%. NCI Lifetime model risk: 5.2%. Prior Study Comparison: 06/13/2020 Bilateral Screening Mammogram, [facility]. 05/10/2022 Bilateral MG 3D screening mammo w/cad, [facility]. 06/23/2023 Bilateral MG 3D screening mammo w/cad, [facility]. Tissue Density: The breasts are heterogeneously dense, which may obscure small masses. Findings: Analyzed By CAD. There is no suspicious group of microcalcifications or new suspicious mass in either breast. Overall Assessment: Negative, BI-RAD 1 Management: Screening Mammogram of both breasts in 1 year. . Patient should continue monthly self-breast exams. A clinical breast exam by your physician is recommended on an annual basis. This exam should not preclude additional follow-up of suspicious palpable abnormalities. Note on Suyapa scores and lifetime risk: 1. A Suyapa score greater than 3% is considered moderate risk. If this is the case, consider specialist referral to assess eligibility for a risk reducing agent. 2. If overall lifetime risk for the development of breast cancer is 20% or higher, the patient may qualify for future screening with alternating mammogram and breast MRI. [facility], , 08/31/2024 10:01 AM. Electronically signed and approved by: Xavi Park M.D. [facility]
== END | disposition home or self-care (01) ==
LOC: RADMAMWWP 07:31
PROVIDERS: ATTEND Internal Medicine
CPT/HCPCS: 77063; 77067